=== PATIENT | female | born 1975 | race Caucasian/White ===

== ENCOUNTER 2019-12-05 10:53 | Outpatient (CLI) | payer OTHER, SELFPAY ==
--- NOTE | ~2019-12-05 | XR_ITS ---
EXAMINATION: XR hip LT min 3V w AP pelvis INDICATION: Left hip pain TECHNIQUE: AP view the pelvis and three views of the left hip are obtained. COMPARISON: 12/25/2016 FINDINGS: Bone alignment is normal. There is no fracture. The soft tissues are unremarkable. IMPRESSION: 1. No acute osseous abnormality. Reviewed, dictated and finalized at location B.
--- NOTE | ~2019-12-05 | XR_ITS ---
EXAMINATION: XR lumbar spine 2-3V DATE: 12/05/2019 11:35 INDICATION: Low back pain TECHNIQUE: Anteroposterior and lateral views of the lumbar spine, and cone-down lateral view of the l umbosacral junction were obtained. COMPARISON: 01/04/2017 FINDINGS: There is no fracture, dislocation, or subluxation. The vertebral body heights, alignment, a nd intervertebral disc spaces are normal. The paravertebral soft tissues are unremarkable. IMPRESSION: 1. Unremarkable lumbar spine. Reviewed, dictated and finalized at location B.
--- NOTE | ~2019-12-05 | XR_ITS ---
EXAMINATION: XR sacrum coccyx min 2V INDICATION: Low back and left hip pain TECHNIQUE: Three views of the sacrum and coccyx are obtained. COMPARISON: None available FINDINGS: Bone alignment is normal. There is no fracture. The visualized soft tissues are unremarkabl e. Body habitus somewhat limits the examination. IMPRESSION: 1. No acute osseous abnormality. Reviewed, dictated and finalized at location B.
[2019-12-05 12:20] LABS: Basophils Percent Auto 0.2 % (0.2-1.2); Eosinophils Absolute Auto 0.1 K/mm3 (0-0.3); Eosinophils Percent Auto 1.2 % (0-4.4); Hematocrit 49.4 % (37.0-47.0); Hemoglobin 15.7 g/dL (12.0-15.0); Immature Granulocyte Absolute 0.01 K/mm3 (0.00-0.031); Immature Granulocyte Percent A 0.2 % (0-0.5); Lymphocytes Absolute Auto 2.41 K/mm3 (0.9-3.2); Lymphocytes Percent Auto 36.7 % (18.3-44.2); Mean Corpuscular HGB Conc 31.8 g/dl (32-36); Mean Corpuscular Hemoglobin 29.6 pg (26-34); Mean Platelet Volume 9.8 fl (7.4-10.4); Monocytes Absolute Auto 0.3 K/mm3 (0.1-0.6); Monocytes Percent Auto 4.3 % (2.6-8.5); Neutrophils Absolute Auto 3.8 K/mm3 (1.3-6.7); Neutrophils Percent Auto 57.4 % (45.5-73.1); Platelet Count Result 256 k/mm3 (150-375); Red Blood Count 5.31 M/mm3 (4.2-5.4); Red Cell Distribution Width 14.5 % (11.5-14.5); White Blood Count 6.6 K/mm3 (4.5-10.0)
[2019-12-05 12:44] LABS: Alanine Aminotransferase 12 U/L (4-35); Albumin Level 3.8 g/dL (3.5-5.1); Alkaline Phosphatase 116 U/L (38-126); Anion Gap 10.5 mmol/L (7-16); Aspartate Amino Transferase 23 U/L (14-36); Bilirubin,Total 0.9 mg/dL (0.2-1.3); Blood Urea Nitrogen 14 mg/dL (7-17); Calcium 8.7 mg/dL (8.4-10.2); Carbon Dioxide 30 mmol/L (22-30); Chloride 101 mmol/L (98-107); Cholesterol 163 mg/dL (0-200); Estimated Glomerular Filt Rate > 60; Glucose 127 mg/dL (65-105); HDL Direct 55 mg/dL; Potassium 4.5 mmol/L (3.4-5.0); Sodium 137 mmol/L (137-145); Triglycerides 98 mg/dL (<150)
[2019-12-05 12:46] LABS: LDL Cholesterol Direct 80 mg/dL
[2019-12-05 12:54] LABS: Creatinine Urine 193.2 mg/dL
[2019-12-05 13:00] LABS: MALB Creatinine Ratio 7.1 mg/g (0-30); Microalbumin Urine Random 13.7 mg/L (0-16.7)
[2019-12-05 13:09] LABS: Hemoglobin A1C 6.5 % (<5.7)
[2019-12-05 13:10] LABS: Free T4 Free Thyroxine 1.58 ng/mL (0.78-2.19); Total Triiodothyronine (T3) 1.15 NG/ML (0.97-1.69)
[2019-12-05 13:15] LABS: Vitamin D 25 Hydroxy < 12.8 ng/mL
== END 2019-12-05 10:54 | disposition home or self-care (01) ==
PROVIDERS: PCP Family Medicine; Visit Provider Nurse Practitioner Family
DX: E55.9 Vitamin D deficiency, unspecified (principal); R73.01 Impaired fasting glucose; I10 Essential (primary) hypertension; R60.9 Edema, unspecified; Z13.220 Encounter for screening for lipoid disorders; M25.552 Pain in left hip; M54.5 Low back pain
CPT/HCPCS: 36415; 72100; 72220; 73502; 80053; 80061; 82043; 82306; 83036; 84439; 84443; 84480; 85025